=== PATIENT | female | born 1960 | race Caucasian/White ===

== ENCOUNTER → 2023-09-02 09:15 | Outpatient (REF) | payer BC, SELFPAY | LOC: WDC 09:15 | PROVIDERS: ATTENDING PHYSICIAN Internal Medicine | DX: Z12.31 Encounter for screening mammogram for malignant neoplasm of breast (principal) | CPT/HCPCS: 77063; 77067 ==

== ENCOUNTER 2023-11-25 14:55 | Emergency (ER) | payer BC, SELFPAY ==
[2023-11-25 14:56] VITALS: BP 119/81
[2023-11-25 15:46] VITALS: BMI 26.5
[2023-11-25 15:50] VITALS: BP 127/74
[2023-11-25] MEDS: VENTOLIN NEBULES 2.5 MG INH (15:54)
[2023-11-25 16:00] VITALS: BP 113/77
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
== END 2023-11-25 17:07 | disposition home or self-care (01) ==
LOC: EMR 14:55
PROVIDERS: EMERGENCY PHYSICIAN Student in an Organized Health Care Education/Training Program; FAMILY PHYSICIAN Internal Medicine
DX: J20.9 Acute bronchitis, unspecified (principal); Z77.120 Contact with and (suspected) exposure to mold (toxic); Q51.3 Bicornate uterus; N80.9 Endometriosis, unspecified; Z90.49 Acquired absence of other specified parts of digestive tract; Z88.8 Allergy status to other drugs, medicaments and biological substances; Z91.048 Other nonmedicinal substance allergy status
CPT/HCPCS: 99283; 94640; 71046

== ENCOUNTER → 2024-10-22 09:09 | Outpatient (REF) | payer BC, SELFPAY | LOC: WDC 09:09 | PROVIDERS: ATTENDING PHYSICIAN Family Medicine | DX: N63.21 Unspecified lump in the left breast, upper outer quadrant (principal); Z12.31 Encounter for screening mammogram for malignant neoplasm of breast | CPT/HCPCS: 76642; 77062; 77066 ==

== ENCOUNTER → 2024-11-07 10:20 | Outpatient (REF) | payer BC, SELFPAY | LOC: RAD 10:20 | PROVIDERS: ATTENDING PHYSICIAN Internal Medicine | DX: Z13.820 Encounter for screening for osteoporosis (principal) | CPT/HCPCS: 77080 ==

== ENCOUNTER 2024-11-27 06:17 | Day surgery (SDC) | payer BC, SELFPAY | END 2024-11-27 08:43 | disposition home or self-care (01) | LOC: GI 06:17 | PROVIDERS: ATTENDING PHYSICIAN Specialist | DX: Z12.11 Encounter for screening for malignant neoplasm of colon (principal); Z86.0101 Personal history of adenomatous and serrated colon polyps; K57.30 Diverticulosis of large intestine without perforation or abscess without bleeding; K64.8 Other hemorrhoids; Z80.0 Family history of malignant neoplasm of digestive organs; D12.3 Benign neoplasm of transverse colon | CPT/HCPCS: 45385; 45380; 88305 ==